=== PATIENT | female | born 1965 | race Caucasian/White ===

== ENCOUNTER 2025-03-04 11:11 | Emergency (ER) | payer OTHER ==
[~2025-03-04] VITALS: Ht 157.5 cm; Wt 104.5 kg
[2025-03-04] MEDS ORDERED: ARIP2TAB27 PO (13:34)
[2025-03-04] MEDS ORDERED: SERT-162 PO (13:34)
[2025-03-04] MEDS ORDERED: PHEN100C74 PO (13:34)
[2025-03-04 13:35] VITALS: BP 156/74; PULSE 77; RESP 16; TEMP 98; O2SAT 98
[2025-03-04 14:19] LABS: CALCIUM, TOTAL 8.5 mg/dL (8.8-10.5); CREATININE 0.90 mg/dL (0.60-1.30); GLOMERULAR FILTR. RATE CALC > 60 mL/min (>60); GLUCOSE,RANDOM 92 mg/dL (70-110); SODIUM SERUM 140 mmol/L (136-145); UREA NITROGEN, BLOOD 13 mg/dL (7-18)
[2025-03-04 14:40] LABS: COVID AG,FIA SOURCE NASAL SWAB
[2025-03-04 14:47] LABS: PLATELET COUNT (AUTO) 233 K/uL (150-450); RED BLOOD CELL COUNT(AUTO) 4.32 MIL/uL (4.00-5.20); RED CELL DISTRIBUTION WIDTH 15.2 % (11.5-14.5); WHITE BLOOD COUNT (AUTO) 6.9 K/uL (4.5-11.0)
[2025-03-04 15:16] LABS: SARS-COV2 (COVID) ANTIGEN,FIA Negative (Negative)
== END 2025-03-04 16:58 | disposition home or self-care (01) ==
LOC: EMS 11:31
DX: F32.A Depression, unspecified (principal); R45.851 Suicidal ideations; G40.909 Epilepsy, unspecified, not intractable, without status epilepticus; Z90.49 Acquired absence of other specified parts of digestive tract; Z88.2 Allergy status to sulfonamides; Z79.899 Other long term (current) drug therapy; Z20.822 Contact with and (suspected) exposure to COVID-19
CPT/HCPCS: 99285; 87426; 80048; 85025; 36415; G0480